=== PATIENT | female | born 1965 | race Caucasian/White ===

== ENCOUNTER 2018-09-20 12:53 | Emergency (ER) | payer BC ==
--- NOTE | 2018-09-20 14:14 | ER Document Report ---
ED Medical Screen (RME) - General Chief Complaint: Leg Pain Stated Complaint: LEFT LEG PAIN Time Seen by Provider: 09/20/18 14:12 Mode of Arrival: Ambulatory Information source: Patient Notes: 53-year-old female presents to ED for complaint of pain to the back of the left calf. She states she just had a [address] and then the leg started hurting in the back of the calf up to behind the knee up to the back of the thigh. She states she has a history of high blood pressure and depression she has had a history of 2 knee scopes a cervical fusion jaw surgery gallbladder C- section she is a former smoker but does not smoke at this time. She is a nurse in a long-term. Patient is alert and oriented respirations regular and unlabored speaking in full sentences walks with even steady gait. I have greeted and performed a rapid initial assessment of this patient. A comprehensive ED assessment and evaluation of the patient, analysis of test results and completion of medical decision making process will be conducted by an additional ED providers. Dictation of this chart was performed using voice recognition software; therefore, there may be some unintended grammatical errors. - Related Data Allergies/Adverse Reactions: Penicillins Allergy (Verified 09/20/18 12:57) Past Medical History - Social History Frequency of alcohol use: None Drug Abuse: None - Past Medical History Cardiac Medical History: Reports: Hx Hypertension Renal/ Medical History: Denies: Hx Peritoneal Dialysis Psychiatric Medical History: Reports: Hx Depression Past Surgical History: Reports: Hx Section, Hx Cholecystectomy, Hx Oral Surgery - jaw, Hx Orthopedic Surgery - [place] knees/cervial fusion Physical Exam - Vital signs Vitals: Temp Pulse Resp BP Pulse Ox 97.7 F 55 L 20 144/73 H 98 09/20/18 13:08 09/20/18 13:08 09/20/18 13:08 09/20/18 13:08 09/20/18 13:08 Course - Vital Signs Vital signs: Temp Pulse Resp BP Pulse Ox 97.7 F 55 L 20 144/73 H 98 09/20/18 13:08 09/20/18 13:08 09/20/18 13:08 09/20/18 13:08 09/20/18 13:08
--- NOTE | 2018-09-20 16:22 | RADIOLOGY REPORT (SQ) ---
EXAM DESCRIPTION: VENOUS UNILATERAL LOWER COMPLETED DATE/TIME: 09/20/2018 3:46 pm REASON FOR STUDY: Pain in left calf long drive. COMPARISON: None. TECHNIQUE: Dynamic and static reece scale and color images acquired of the left leg venous system. Se lected spectral images acquired with additional compression and augmentation maneuvers. The contralat eral common femoral vein and saphenofemoral junction were also imaged. Images stored on PACS. LIMITATIONS: None. FINDINGS: COMMON FEMORAL: Normal phasicity, compression and augmentation. No visualized echogenic ma terial on reece scale. No defects on color images. FEMORAL: Normal compression and augmentation. No visualized echogenic material on reece scale. No defe cts on color images. POPLITEAL: Normal compression, augmentation. No visualized echogenic material on reece scale. No defec ts on color images. CALF VESSELS: Normal compression, augmentation. No visualized echogenic material on reece scale. No de fects on color images. GSV and SSV: Normal compression, augmentation. No visualized echogenic material on reece scale. No def ects on color images. ANY DEEP VENOUS INSUFFICIENCY: Not evaluated. ANY EVIDENCE OF POPLITEAL CYST: No. OTHER: No other significant finding. CONTRALATERAL COMMON FEMORAL VEIN AND SAPHENOFEMORAL JUNCTION: Normal phasicity, compression and augmentation. No visualized echogenic material on reece scale. No de fects on color images. IMPRESSION: NO EVIDENCE DVT OR SVT IN THE LEFT LEG. TECHNICAL DOCUMENTATION: JOB ID: [id number] [employer]- All Rights Reserved Reading location - IP/workstation name: [email or web address]
--- NOTE | 2018-09-20 16:28 | ER Document Report ---
ED General - General Chief Complaint: Leg Pain Stated Complaint: LEFT LEG PAIN Time Seen by Provider: 09/20/18 14:12 Mode of Arrival: Ambulatory - HPI Notes: 53-year-old female to the emergency department with complaints of left leg pain at the beginning of this week. She states that she just drove 2000 miles over the weekend, back and forth to [place]. She denies any swelling, redness, history of DVT, history of malignancy, oral contraceptive use. She states the pain began in the back of her calf and now is coming up into the back of the hamstring. She denies any mayo injury, is driving to [place] her left leg was bent for long periods of time. She denies any fevers, chills, chest pain, shortness of breath, headache, nausea, vomiting, diarrhea. - Related Data Allergies/Adverse Reactions: Penicillins Allergy (Verified 09/20/18 12:57) Past Medical History - General Information source: Patient - Social History Smoking Status: Former Smoker Frequency of alcohol use: None Drug Abuse: None Family History: Reviewed & Not Pertinent Patient has suicidal ideation: No Patient has homicidal ideation: No - Past Medical History Cardiac Medical History: Reports: Hx Hypertension Renal/ Medical History: Denies: Hx Peritoneal Dialysis Psychiatric Medical History: Reports: Hx Depression Past Surgical History: Reports: Hx Section, Hx Cholecystectomy, Hx Oral Surgery - jaw, Hx Orthopedic Surgery - [place] knees/cervial fusion Review of Systems - Review of Systems Constitutional: denies: Chills, Fever EENT: No symptoms reported Cardiovascular: denies: Chest pain, Palpitations, Orthopnea, Dyspnea, Syncope, Dizziness, Lightheaded, Edema Respiratory: denies: Cough, Short of breath Gastrointestinal: denies: Abdominal pain, Diarrhea, Nausea, Vomiting Musculoskeletal: Muscle pain - Left posterior calf and posterior thigh pain since driving long distance Skin: No symptoms reported. denies: Change in color Hematologic/Lymphatic: See HPI. denies: Blood clots Neurological/Psychological: No symptoms reported -: Yes All other systems reviewed and negative Physical Exam - Vital signs Vitals: Temp Pulse Resp BP Pulse Ox 97.7 F 55 L 20 144/73 H 98 09/20/18 13:08 09/20/18 13:08 09/20/18 13:08 09/20/18 13:08 09/20/18 13:08 Interpretation: Hypertensive - General General appearance: Appears well In distress: None - HEENT Head: Normocephalic, Atraumatic Eyes: Normal Pupils: PERRL - Respiratory Respiratory status: No respiratory distress Chest status: Nontender Breath sounds: Normal Chest palpation: Normal - Cardiovascular Rhythm: Regular Heart sounds: Normal auscultation Murmur: No - Abdominal Inspection: Normal, Obese Distension: No distension Bowel sounds: Normal Tenderness: Nontender Organomegaly: No organomegaly - Back Back: Normal, Nontender - Extremities General upper extremity: Normal inspection, Nontender, Normal strength, Normal temperature General lower extremity: No: Patricio's sign Thigh: Tender - Positive tenderness to palpation to the posterior left thigh with noted tightness to the hamstring muscles. There is no edema, erythema, probable cords, skin changes. Increased pain in the back of the hamstrings with passive flexion at the hip. Knee: Tender - Mild tenderness to the posterior left knee at the popliteal fossa but with no edema or cystic structure to suggest Londono's cyst., Popliteal fossa tender. No: Drawer's test instability, Joint effusion, Laxity with valgus stress, Laxity with varus stress, Pain with ROM, Unable to bear weight Calf: Tender - Mild tenderness to palpation to the left upper calf and into the posterior aspect of the knee with no palpable cords, erythema, edema, skin changes. No: Unable to bear weight Ankle: Normal. No: Edema Foot: Normal. No: Edema - Neurological Neuro grossly intact: Yes Cognition: Normal Orientation: AAOx4 Hudson Coma Scale Eye Opening: Spontaneous Hudson Coma Scale Verbal: Oriented Earl Coma Scale Motor: Obeys Commands Earl Coma Scale Total: 15 Speech: Normal Motor strength normal: LUE, RUE, LLE, RLE Sensory: Normal - Psychological Associated symptoms: Normal affect, Normal mood - Skin Skin Temperature: Warm Skin Moisture: Dry Skin Color: Normal Course - Re-evaluation Re-evalutation: 09/20/18 16:59 Impression: Left calf and left hamstring strainsuspect it is from long hours in the car and traveling. She had a negative Doppler here for DVT. She has no skin changes to suggest a cellulitic process. She has no edema to the leg. Her exam is most consistent with a musculoskeletal strain. We will plan to send home with [facility]. Offered 800 mg Motrin as well but patient declined. We will have her follow with her primary care in 1 week. She denies any shortness of breath. Noted vital signsshe is not tachypneic, hypoxic, or tachycardic rate - Vital Signs Vital signs: Temp Pulse Resp BP Pulse Ox 97.7 F 55 L 20 144/73 H 98 09/20/18 13:08 09/20/18 13:08 09/20/18 13:08 09/20/18 13:08 09/20/18 13:08 - Diagnostic Test Radiology reviewed: Image reviewed, Reports reviewed Discharge - Discharge Clinical Impression: Left hamstring muscle strain Strain of calf muscle Qualifiers: Encounter type: initial encounter Laterality: left Qualified Code(s): S86.812A - Strain of other muscle(s) and tendon(s) at lower leg level, left leg, initial encounter Condition: Stable Disposition: HOME, SELF-CARE Instructions: Muscle Strain ([facility] Additional Instructions: Gentle stretching of the calf and thigh daily. May apply either warm compresses or get into a warm Epson salt bath. Take muscle relaxants as prescribed. Return if any worsening symptoms such as chest pain, shortness of breath, skin changes, fever. Follow-up with primary care in 1 week. Prescriptions: Cyclobenzaprine HCl [Flexeril 5 mg Tablet] 5 - 10 mg PO TID #15 tablet Referrals: [facility] [Provider Group] - Follow up in 1 week
[2018-09-20 17:16] VITALS: BP 146/83
== END 2018-09-20 17:05 | disposition home or self-care (01) ==
LOC: ER 12:53
DX: S76.312A Strain of muscle, fascia and tendon of the posterior muscle group at thigh level, left thigh, initial encounter (principal); S86.912A Strain of unspecified muscle(s) and tendon(s) at lower leg level, left leg, initial encounter; M79.18 Myalgia, other site; X58.XXXA Exposure to other specified factors, initial encounter; I10 Essential (primary) hypertension; Z87.891 Personal history of nicotine dependence; Z88.0 Allergy status to penicillin
CPT/HCPCS: 93971; 99283